=== PATIENT | female | born 1980 | race American Indian/Alaskan Native ===

== ENCOUNTER 2017-09-19 12:51 | Emergency (ER) | payer BC ==
[2017-09-19 13:38] VITALS: BP 101/71
--- NOTE | 2017-09-19 14:56 | Emergency Department Report ---
HPI - General Chief Complaint: Back Pain/Injury Time Seen by Provider: 09/19/17 14:53 - HPI HPI: patient with low back pain, after moving furniture, pain is spasm, 4/10, without radiation. no n/v, no chest pain, no dysuria. ED Past Medical Hx - Past Medical History Previous Medical History?: No Hx Hypertension: No - Surgical History Additional Surgical History: cervical cerclauge - Social History Smoking Status: Current Every Day Smoker Substance Use Type: Alcohol - Medications Home Medications: Home Medications Medication Instructions Recorded Confirmed Last Taken Type methOCARBAMOL [Robaxin TAB] 500 mg PO Q6H PRN #10 tablet 09/19/17 Unknown Rx ED Review of Systems ROS: Stated complaint: BACK/MUSCLE PAIN Other details as noted in HPI Comment: All other systems reviewed and negative Gastrointestinal: denies: abdominal pain, nausea, vomiting Musculoskeletal: back pain, arthralgia Physical Exam - Physical Exam Vital Signs: Vital Signs 09/19/17 13:35 Temperature 98.2 F Pulse Rate 81 Respiratory 18 Rate Blood Pressure 101/71 O2 Sat by Pulse 100 Oximetry Physical Exam: GENERAL APPEARANCE: Well developed, well nourished, alert and cooperative, and appears to be in no acute distress. HEAD: normocephalic. EYES: PERRL, EOMI. Fundi normal, vision is grossly intact. EARS: External auditory canals and tympanic membranes clear, hearing grossly intact. NOSE: No nasal discharge. THROAT: Oral cavity and pharynx normal. No inflammation, swelling, exudate, or lesions. Teeth and gingiva in good general condition. NECK: Neck supple, non-tender without lymphadenopathy, masses or thyromegaly. CARDIAC: Normal S1 and S2. No S3, S4 or murmurs. Rhythm is regular. There is no peripheral edema, cyanosis or pallor. Extremities are warm and well perfused. Capillary refill is less than 2 seconds. No carotid bruits. LUNGS: Clear to auscultation and percussion without rales, rhonchi, wheezing or diminished breath sounds. ABDOMEN: Positive bowel sounds. Soft, nondistended, nontender. No guarding or rebound. No masses. MUSKULOSKELETAL: Adequately aligned spine. ROM intact spine and extremities. No joint erythema or tenderness. Normal muscular development. Normal gait. ED Course Vital Signs 09/19/17 13:35 Temperature 98.2 F Pulse Rate 81 Respiratory 18 Rate Blood Pressure 101/71 O2 Sat by Pulse 100 Oximetry Critical care attestation.: If time is entered above; I have spent that time in minutes in the direct care of this critically ill patient, excluding procedure time. ED Disposition Clinical Impression: Back pain Qualifiers: Back pain location: low back pain Chronicity: chronic Back pain laterality: unspecified Sciatica presence: without sciatica Qualified Code(s): M54.5 - Low back pain Disposition: TO HOME OR SELFCARE Is pt being admited?: No Does the pt Need Aspirin: No Condition: Stable Instructions: Low Back Strain (ED), Lumbar Radiculopathy (ED), Back Pain (ED) Prescriptions: methOCARBAMOL [Robaxin TAB] 500 mg PO Q6H PRN #10 tablet PRN Reason: Muscle Spasm Referrals: KLARISSA MCCANN MD [Primary Care Provider] - 3-5 Days Forms: Work/School Release Form
== END 2017-09-19 15:09 | disposition home or self-care (01) ==
LOC: ED 12:51
DX: M54.5 Low back pain (principal); F17.200 Nicotine dependence, unspecified, uncomplicated
CPT/HCPCS: 99282